=== PATIENT | male | born 1985 | race Caucasian/White ===

== ENCOUNTER 2018-09-23 18:24 | Emergency (ER) | payer MEDICAID ==
[2018-09-23] MEDS ORDERED: LIDOCAINE 1%/EPI (MDV) 50 ML INJ INJ (22:30)
[2018-09-23] MEDS: HYDROCODONE/APAP (10/325) TAB PO (22:31)
[2018-09-23] MEDS: LIDOCAINE 1%/EPI 30 ML INJ INJ (22:40)
== END 2018-09-23 23:35 | disposition home or self-care (01) ==
LOC: FTE 18:24
DX: L05.01 Pilonidal cyst with abscess (principal); N18.9 Chronic kidney disease, unspecified
CPT/HCPCS: 10080; 99284-25